=== PATIENT | male | born 1960 | race Caucasian/White ===

== ENCOUNTER 2023-08-10 10:23 | Day surgery (SDC) | payer BC ==
[2023-08-10 11:44] VITALS: BP 154/92; TEMP 98
== END 2023-08-10 13:40 | disposition home or self-care (01) ==
LOC: CSHRAD 10:23
PROVIDERS: ATTEND Family Medicine
PROC: B01BYZZ Fluoroscopy of Spinal Cord using Other Contrast (ICD-10-PCS; principal; 2023-08-10)
DX: M96.1 Postlaminectomy syndrome, not elsewhere classified (principal); M47.26 Other spondylosis with radiculopathy, lumbar region; M48.062 Spinal stenosis, lumbar region with neurogenic claudication
CPT/HCPCS: 62304; 72132

== ENCOUNTER 2023-11-16 12:35 | Outpatient (CLI) | payer BC ==
[2023-11-16] MEDS ORDERED: Iopamidol 300 61% 100 ML VIAL FS ONE (13:52)
== END 2023-11-16 12:36 | disposition home or self-care (01) ==
LOC: CSHCT 12:35
PROVIDERS: ATTEND Nurse Practitioner Family
DX: M25.551 Pain in right hip (principal); M16.11 Unilateral primary osteoarthritis, right hip
CPT/HCPCS: 82565; Q9967